=== PATIENT | male | born 1980 | race Caucasian/White ===

== ENCOUNTER 2022-10-01 03:12 | Emergency (ER) | payer OTHER, SELFPAY ==
[2022-10-01] VITALS (12 sets, daily range): BP systolic 130–172; BP diastolic 80–117; PULSE 97–116; RESP 20; TEMP 36.8; O2SAT 91–98
--- NOTE | 2022-10-01 03:30 | PC.NURSE ---
tourniquet up at [id number]
[2022-10-01] MEDS: MORPHINE SULFATE (*CRX) 4 MG/ML INJ IV PUSH ×2 (03:32→04:26)
[2022-10-01] MEDS: TETANUS,DIPHTHERIA,AC PERTUSSIS ADULT (0.5 ML) BOOSTRIX IM (03:33)
--- NOTE | 2022-10-01 03:35 | PC.NURSE ---
MD to bedside to assess wound. patient alert and oriented x4. pressure dressing applied to hand. with tourniquet in place at 0329
--- NOTE | 2022-10-01 03:36 | ED.GENADULT ---
HPI - General Adult General Chief complaint: Wound/Laceration Stated complaint: LEFT HAND LACERATION Time Seen by Provider: 10/01/22 03:20 History of Present Illness HPI narrative: Is a 42-year-old gentleman who presents the emergency department with chief complaint of laceration to the left hand. 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 Per the patient there is a large amount of bleeding at the scene Related Data Home Medications Medication Instructions Recorded Confirmed sulfamethoxazole 800 tablet 10/01/22 mg-trimethoprim 160 mg tablet (Bactrim DS) Allergies Allergy/AdvReac Type Severity Reaction Status Date / Time diphenhydramine AdvReac Jittery Verified 10/01/22 03:16 [From [facility]] Review of Systems Review of Systems: A 10 system review of systems was completed on the patient and is negative except for what is stated in the HPI. Nursing and ancillary documentation was reviewed. Exam Narrative: GENERAL: Well-appearing, well-nourished, and in no acute distress. HEAD: Normocephalic, atraumatic. EYES: PERRLA and EOMI. ENT: Nares clear, no rhinorrhea or epistaxis. Mucous membranes moist. NECK: Supple. CHEST: Clear to auscultation. No respiratory distress. HEART: Regular rate and rhythm. No murmur heard. Normal peripheral pulses. ABDOMEN: Soft, nontender, nondistended, normal active bowel sounds. EXTREMITIES: Normal range of motion. No edema. Large laceration in the webspace between the thumb and the index finger of the left hand that extends to the area of the distal radius. SKIN: Warm, dry, no rash. Fingertips are dusky NEURO: No focal deficits. Alert and oriented x3. PSYCH: Normal mood and affect. Course Vital Signs Vital signs: Vital Signs Temperature 36.8 C 10/01/22 03:09 Pulse Rate 116 H 10/01/22 03:09 Respiratory Rate 20 10/01/22 03:09 Blood Pressure 157/99 H 10/01/22 03:09 Pulse Oximetry 96 10/01/22 03:09 Oxygen Delivery Room Air 10/01/22 03:09 Temperature 36.8 C 10/01/22 03:09 Pulse Rate 97 01/21/23 05:19 Respiratory Rate 20 10/01/22 05:19 Blood Pressure 172/117 H 10/01/22 05:31 Pulse Oximetry 92 10/01/22 05:45 Oxygen Delivery Room Air 10/01/22 03:09 Procedures Laceration Laceration 1: Date: 10/01/22 Time: 05:52 Site: hand (left hand) Size (cm): 10 Description: linear Depth: involves muscle layer Local Anesthetic: lidocaine 1% Amount of anesthesia used (mL): 10 Pre-repair: wound explored and irrigated extensively ====== Skin Level ====== Skin layer closed with: nylon Size (cm): 4-0 Number of sutures: 14 Technique: simple, interrupted ====== Subcutaneous Layer ====== ====== Muscle Layer ====== ====== Tendon Layer ====== Medical Decision Making MDM Narrative Medical decision making narrative: The patient's tetanus status was updated the patient was given 2 g of Ancef and pain control was given to the patient When the initial dressing was removed the patient had an area of arterial bleeding and large venous bleeding. Pressure dressing was applied and was difficult time controlling the bleeding with just a pressure dressing and direct pressure a tourniquet was placed over the left forearm and the bleeding has been controlled at this time Due to the extensive laceration and bleeding the case will be discussed with the [facility] trauma center The case was discussed with [facility] currently there hand group was unable to take the patient The case was discussed with the [facility] hand surgeon who recommended superficially closing the wound and following up in the hand clinic The wound was able to be closed and hemostasis was achieved Vital Signs Vit
--- NOTE | 2022-10-01 03:47 | PC.NURSE ---
Tourniquet taken down by at 0346. Pressure dressing in place. Cap refill WNL, sensation normal for patient.
[2022-10-01] MEDS: ceFAZolin 2 GM/D5W 50 ML 2 GM/50 ML BAG IVPB (04:08)
[2022-10-01] MEDS: LIDOCAINE HCL 1% PF 30 ML VIAL (05:22)
[2022-10-01] MEDS: HYDROmorphone HCL INJ (*CRX) 1 MG/ML SYR IV PUSH (05:23)
[2022-10-01] MEDS: HYDROmorphone HCL INJ (*CRX) 1 MG/ML SYR (05:34)
--- NOTE | 2022-10-01 06:01 | PC.NURSE ---
Pressure dressing with gauze and coband applied to L hand. Pt tolerated well. Bleeding controlled.
== END 2022-10-01 06:20 | disposition home or self-care (01) ==
PROVIDERS: Emergency Provider Emergency Medicine; PCP Emergency Medicine
DX: S61.412A Laceration without foreign body of left hand, initial encounter (principal); W26.8XXA Contact with other sharp object(s), not elsewhere classified, initial encounter; Z23 Encounter for immunization
CPT/HCPCS: 12004; 90471; 90715; 96365; 96375; 96376; 99284; J0690; J1170; J2270